=== PATIENT | male | born 1955 | race Caucasian/White ===

== ENCOUNTER 2016-10-15 16:19 | Inpatient (IN) | payer OTHER ==
[2016-10-15] VITALS (7 sets, daily range): BP systolic 122–150; BP diastolic 70–91
[~2016-10-15] VITALS: Ht 180.3 cm; Wt 109.3 kg
--- NOTE | ~2016-10-15 | EKG ---
[place], [place] ELECTROCARDIOGRAM REPORT NAME: JAYNE COATES UNIT #: [id number] ROOM: [id number] DOCTOR: JAYNE MARTINEZ MD BIRTHDATE: [birth year] DOS: 10/15/2016 TIME: 1632 hours. FINDINGS: 1. Sinus tachycardia, rate of 102. 2. Possible left atrial enlargement. 3. Abnormal electrocardiogram. JAYNE MARTINEZ MD CM:EKGRPT:ELECTROCARDIOGRAM REPORT [id number] JAYNE MARTINEZ MD
[2016-10-15 16:39] LABS: BASO # 0.1 10*3/uL (0.0-0.1); BASO % 0.5 % (0.0-1.0); EOS % 0.1 % (1.0-4.0); HEMATOCRIT 41.7 % (42.0-52.0); HEMOGLOBIN 15.2 g/dl (14.0-18.0); LYMPH # 1.6 10*3/uL (1.3-4.4); LYMPH % 15.6 % (27.0-41.0); MEAN CELL VOLUME 88.7 fl (80.0-94.0); MEAN CORPUSCULAR HGB 32.3 pg (27.0-31.0); MEAN CORPUSCULAR HGB CONC 36.5 g/dl (33.0-37.0); MONO # 0.7 10*3/uL (0.1-1.0); MONO % 7.1 % (3.0-9.0); NEUT # 7.7 10*3/uL (2.3-7.9); NEUT % 76.4 % (47.0-73.0); PLATELET COUNT AUTOMATED 365 10*3/uL (130-400)
[2016-10-15 16:46] LABS: PROTHROMBIN TIME 11.1 SECONDS (9.0-12.4)
[2016-10-15] MEDS ORDERED: LOSARTAN POTASS1 TA6 PO (16:47)
[2016-10-15] MEDS ORDERED: ASPIRIN81 M1 PO (16:47)
[2016-10-15 16:55] LABS: BILIRUBIN, TOTAL 0.9 mg/dl (0.2-1.0); BUN 27 mg/dl (7-24); CARBON DIOXIDE 24 mmol/L (21-32); CHLORIDE 107 mmol/L (98-107); EST GLOM FILT AFRICAN AMERICAN > 60 ml/min; GLUCOSE 88 mg/dL (65-99); MAGNESIUM 1.8 mg/dL (1.5-2.1); POTASSIUM 3.7 mmol/L (3.5-5.1); SGOT/AST 13 IU/L (3-35); SGPT/ALT 17 U/L (12-78); SODIUM 139 mmol/L (136-145); TOTAL PROTEIN 7.6 gm/dL (6.4-8.2)
[2016-10-15 16:58] LABS: ALKALINE PHOSPHATASE 73 U/L (45-117)
[2016-10-15 16:59] LABS: TROPONIN I < 0.015 ng/ml (<0.045)
[2016-10-16] VITALS: BP 98/52
[2016-10-16 06:41] LABS: BASO % 0.6 % (0.0-1.0); EOS # 0.1 10*3/uL (0.0-0.4); EOS % 1.2 % (1.0-4.0); HEMOGLOBIN 13.4 g/dl (14.0-18.0); LYMPH % 29.6 % (27.0-41.0); MEAN CELL VOLUME 91.3 fl (80.0-94.0); MEAN CORPUSCULAR HGB 32.2 pg (27.0-31.0); MEAN CORPUSCULAR HGB CONC 35.3 g/dl (33.0-37.0); MEAN PLATELET VOLUME 9.1 fl (9.6-12.3); MONO # 0.6 10*3/uL (0.1-1.0); MONO % 9.2 % (3.0-9.0); NEUT # 3.9 10*3/uL (2.3-7.9); NEUT % 59.1 % (47.0-73.0); PLATELET COUNT AUTOMATED 301 10*3/uL (130-400); RED BLOOD COUNT 4.16 10*6/uL (4.50-5.90); RED CELL DISTRI WIDTH 12.5 % (0-14.5); WHITE BLOOD COUNT 6.6 10*3/uL (4.8-10.8)
[2016-10-16 06:53] LABS: BUN 32 mg/dl (7-24); CARBON DIOXIDE 28 mmol/L (21-32); CHLORIDE 108 mmol/L (98-107); CHOLESTEROL 131 mg/dL (<200); EST GLOM FILT AFRICAN AMERICAN > 60 ml/min; GLUCOSE 92 mg/dL (65-99); MAGNESIUM 2.2 mg/dL (1.5-2.1); PHOSPHOROUS 3.3 mg/dL (2.5-4.9); POTASSIUM 3.6 mmol/L (3.5-5.1); SODIUM 142 mmol/L (136-145); TRIGLYCERIDES 38 mg/dl (<150); VLDL CHOLESTEROL 8 mg/dL (6-40)
[2016-10-16 06:55] LABS: HEMOGLOBIN A1c 5.7 % (4.8-5.6)
[2016-10-16 07:01] LABS: FREE T4 0.98 ng/dl (0.76-1.46); HDL CHOLESTEROL 50 mg/dl (40-60); LDL CHOLESTEROL 73 mg/dL (9-159)
[2016-10-16 08:00] VITALS: BP 142/99
[2016-10-16 12:00] VITALS: BP 131/83
[2016-10-16 14:49] VITALS: BP 132/81
[2016-10-16 16:00] VITALS: BP 139/75
[2016-10-16 16:49] VITALS: BP 129/86
[2016-10-16] MEDS ORDERED: Fioricet 325 MG1 TAB PO (17:12)
[2016-10-16] MEDS ORDERED: AMLODIPINE BESYL5 MG PO (17:12)
== END 2016-10-16 18:39 | disposition home or self-care (01) | DRG 313 ==
LOC: ED 16:19 → EDHOLD 18:54 → 4E 19:08
PROVIDERS: Emergency Medicine; Internal Medicine
DX: R07.9 Chest pain, unspecified (principal); I10 Essential (primary) hypertension; R00.0 Tachycardia, unspecified; R42 Dizziness and giddiness; G44.209 Tension-type headache, unspecified, not intractable; D64.9 Anemia, unspecified; E66.9 Obesity, unspecified; Z68.33 Body mass index [BMI] 33.0-33.9, adult; Z88.8 Allergy status to other drugs, medicaments and biological substances; Z82.49 Family history of ischemic heart disease and other diseases of the circulatory system; Z80.8 Family history of malignant neoplasm of other organs or systems; Z83.3 Family history of diabetes mellitus

== ENCOUNTER 2020-08-22 12:13 | Emergency (ER) | payer OTHER ==
[~2020-08-22] VITALS: Wt 104.8 kg
[~2020-08-22 12:13] MED LIST: AMLODIPINE BESYL5 MG PO; ASPIRIN81 M1 PO; Fioricet 325 MG1 TAB PO; LOSARTAN POTASS1 TA6 PO
[2020-08-22 12:50] LABS: BASO % 0.1 % (0.0-1.0); HEMATOCRIT 44.3 % (42.0-52.0); LYMPH # 0.7 10*3/uL (1.3-4.4); LYMPH % 8.9 % (27.0-41.0); MEAN CELL VOLUME 89.5 fl (80.0-94.0); MEAN CORPUSCULAR HGB 32.1 pg (27.0-31.0); MEAN CORPUSCULAR HGB CONC 35.9 g/dl (33.0-37.0); MEAN PLATELET VOLUME 10.4 fl (9.6-12.3); MONO # 0.4 10*3/uL (0.1-1.0); MONO % 5.5 % (3.0-9.0); NEUT # 6.2 10*3/uL (2.3-7.9); NEUT % 85.2 % (47.0-73.0); PLATELET COUNT AUTOMATED 283 10*3/uL (130-400); RED BLOOD COUNT 4.95 10*6/uL (4.50-5.90); RED CELL DISTRI WIDTH 12.2 % (0-14.5); WHITE BLOOD COUNT 7.3 10*3/uL (4.8-10.8)
[2020-08-22 13:23] LABS: ALBUMIN 3.7 gm/dl (3.1-4.5); ALKALINE PHOSPHATASE 89 U/L (45-117); BUN 26 mg/dl (7-24); CHLORIDE 112 mmol/L (98-107); POTASSIUM 3.7 mmol/L (3.5-5.1); SGOT/AST 9 IU/L (3-35); SGPT/ALT 16 U/L (12-78); SODIUM 143 mmol/L (136-145); TOTAL PROTEIN 6.9 gm/dL (6.4-8.2); TROPONIN I < 0.015 ng/ml (<0.045)
[2020-08-22 13:25] LABS: ACT PARTIAL THROMBO TIME 27.4 SECONDS (20.0-32.1)
[2020-08-22] MEDS ORDERED: DECADRON6 M1 PO (16:46)
== END 2020-08-22 17:33 | disposition home or self-care (01) ==
LOC: ED 12:13
PROVIDERS: Family Medicine
DX: U07.1 COVID-19 (principal); R07.89 Other chest pain; Z88.6 Allergy status to analgesic agent; Z79.899 Other long term (current) drug therapy; Z79.82 Long term (current) use of aspirin; Z98.890 Other specified postprocedural states

== ENCOUNTER → 2023-10-05 | Outpatient (CLI) | payer OTHER ==
[~2023-10-05] MED LIST changes: +DECADRON6 M1 PO
== END | disposition home or self-care (01) ==
LOC: RAD 12:13
PROVIDERS: ATTEND Chiropractor
DX: M47.817 Spondylosis without myelopathy or radiculopathy, lumbosacral region (principal); M47.815 Spondylosis without myelopathy or radiculopathy, thoracolumbar region; M51.37 Other intervertebral disc degeneration, lumbosacral region

== ENCOUNTER → 2023-10-12 | Outpatient (CLI) | payer OTHER | END | disposition home or self-care (01) | LOC: RAD 12:12 | PROVIDERS: ATTEND Chiropractor | DX: M16.0 Bilateral primary osteoarthritis of hip (principal); M25.551 Pain in right hip; M25.552 Pain in left hip ==